=== PATIENT | male | born 1970 | race Caucasian/White ===

== ENCOUNTER → 2016-09-28 | Outpatient (CLI) | payer MEDICARE, OTHER ==
--- NOTE | 2016-09-28 15:40 | REP ---
MR CERVICAL SPINE WITHOUT CONTRAST: HISTORY: Neck pain. COMPARISON: 06/24/2015. A disc bulge is present at C3-4 level. There is mild effacement of the thecal sac without spinal cord compression. Bilateral uncinate process hypertrophy is present. This produces moderate and mild narrowing of the right and left C3 neural foramina respectfully. A disc bulge is present at the C4-5 level. There is minimal effacement of the thecal sac without spinal cord compression. Bilateral uncinate process hypertrophy is present. This produces mild and moderate narrowing of the right and left C4 neural foramina respectfully. A disc bulge with associated osteophyte formation is present at the C5-6 level. There is mild effacement of the thecal sac without spinal cord compression. Bilateral uncinate process hypertrophy is present. This produces mild and moderate narrowing of the right and left C5 neural foramina respectfully. A disc bulge is present at the C6-7 level. There is minimal effacement of the thecal sac without spinal cord compression. The C6 neural foramina are patent. A small central disc protrusion is present at the T2-3 level. There is minimal effacement of the thecal sac without spinal cord compression. The T2 neural foramina are patent on sagittal images. There is no other disc bulge or herniation. The remaining neural foramina are patent. The spinal cord is normal in signal intensity. There is no intradural extramedullary lesion. The C3-4 through C6-7 intervertebral discs are decreased in height consistent with disc degeneration. A hemangioma is present in the T1 vertebral body. Normal signal intensity is present in the cervical vertebral bodies. IMPRESSION: There is cervical spondylosis at the C3-4 through C6-7 levels without spinal cord compression. There is no significant change compared to the previous study. Signed by Estiven Arora MD 09/28/2016 03:41 P
--- NOTE | 2016-09-28 16:18 | REP ---
MRI LUMBAR SPINE WITHOUT CONTRAST: HISTORY: Back pain. COMPARISON: 10/15/2013 Decreased signal intensity on T2 weighted images is present in the L2-3 through L5-S1 intervertebral discs. The discs are decreased in height: These findings are consistent with disc degeneration. There is no disc bulge or herniation at the L1-2 level. The L1 nerves exit the neural foramina without compression. A diffuse disc bulge is present at the L2-3 level. There is minimal compression of the thecal sac. There is hypertrophy of the posterior articulating facets. The L2 nerves exit the neural foramina without compression. A diffuse disc bulge is present at the L3-4 level. There is minimal compression of the thecal sac. There is hypertrophy of the posterior articulating facets. The L3 nerves exit the neural foramina without compression. A diffuse disc bulge and small left paracentral disc extrusion are present at the L4-5 level. There is minimal compression of the thecal sac. There is hypertrophy of the posterior articulating facets. The L4 nerves exit the neural foramina without compression. A diffuse disc bulge is present at the L5-S1 level. There is minimal compression of the thecal sac. There is hypertrophy of the posterior articulating facets. The L5 nerves exit the neural foramina without compression. The conus medullaris is normal in appearance terminating at the level of the T12-L1 intervertebral disc. Increased signal intensity on T2 weighted images is present in the end plates of the L2 through 5 vertebral bodies. This represent degenerative change. IMPRESSION: 1. Diffuse disc bulges at the L2-3, L3-4 and L5-S1 levels with minimal thecal sac compression. 2. Diffuse disc bulge and small left paracentral disc extrusion at the L4-5 level with minimal thecal sac compression. There is no significant change compared to the previous study. Signed by Estiven Arora MD 09/28/2016 04:19 P
== END ==
LOC: M RAD 14:03
PROVIDERS: ATTEND Family Medicine
DX: M51.26 Other intervertebral disc displacement, lumbar region (principal); M50.020 Cervical disc disorder with myelopathy, mid-cervical region, unspecified level

== ENCOUNTER → 2017-12-13 | Outpatient (CLI) | payer OTHER | LOC: M RAD 13:17 | DX: M25.78 Osteophyte, vertebrae (principal); M50.31 Other cervical disc degeneration, high cervical region; M50.321 Other cervical disc degeneration at C4-C5 level; M47.22 Other spondylosis with radiculopathy, cervical region | CPT/HCPCS: 72141 ==

== ENCOUNTER → 2018-11-09 | Outpatient (CLI) | payer MEDICARE ==
--- NOTE | 2018-11-11 09:17 | REP ---
MR LUMBAR SPINE WITHOUT CONTRAST: HISTORY: Disc displacement. COMPARISON: 09/28/2016. Decreased signal intensity on T2-weighted images is present in the L2-3 through L5-S1 intervertebral disc. The discs are decreased in height. These findings are consistent with disc degeneration. There is no disc bulge or herniation at the L1-2 level. The L1 nerves exit the neural foramina without compression. A diffuse disc bulge is present at the L2-3 level. There is minimal compression of the thecal sac. There is hypertrophy of the posterior articulating facets. The L2 nerves exit the neural foramina without compression. A diffuse disc bulge is present at the L3-4 level. There is minimal compression of the thecal sac. There is hypertrophy of the posterior articulating facets. The L3 nerves exit the neural foramina without compression. A diffuse disc bulge and small left paracentral disc extrusion are present at the L4-5 level. There is minimal compression of the thecal sac. There is hypertrophy of the posterior articulating facets. There is compression of the right L4 nerve in the neural foramen. The left L4 nerve exits the neural foramen without compression. A diffuse disc bulge is present at the L5-S1 level. There is minimal compression of the thecal sac. There is hypertrophy of the posterior articulating facets. The L5 nerves exit the neural foramina without compression. The conus medullaris is normal in appearance terminating at the level of the T12-L1 intervertebral disc. Increased signal intensity on T2-weighted images is present in the endplates of the L2-5 vertebral bodies. This represents degenerative change. IMPRESSION: 1. Diffuse disc bulges at the L1-2, L3-4 , and L5-S1 levels with minimal thecal sac compression. 2. Diffuse disc bulge and small left paracentral disc extrusion at the L4-5 level with minimal thecal sac compression. There is compression of the right L4 nerve in the neural foramen. The right L4 nerve compression is a new finding. Electronically Signed by Estiven Arora MD 11/11/2018 09:30 A
== END ==
LOC: M RAD 13:38
PROVIDERS: ATTEND Family Medicine
DX: M47.896 Other spondylosis, lumbar region (principal); M51.36 Other intervertebral disc degeneration, lumbar region

== ENCOUNTER 2019-11-08 17:06 | Emergency (ER) | payer MEDICARE, MEDICAID ==
[~2019-11-08] VITALS: Ht 175.3 cm; Wt 96.9 kg
[2019-11-08] MEDS ORDERED: MEDR4PAK PO (17:51)
[2019-11-08] MEDS ORDERED: KETOROLAC 60 MG/2 ML VIAL (J1885) IM ONE (18:00)
[2019-11-08 18:08] VITALS: BP 112/80
== END 2019-11-08 18:12 | disposition home or self-care (01) ==
LOC: M ED 17:06
DX: M54.41 Lumbago with sciatica, right side (principal); M51.27 Other intervertebral disc displacement, lumbosacral region; M51.37 Other intervertebral disc degeneration, lumbosacral region; G89.29 Other chronic pain; M62.830 Muscle spasm of back; Z98.890 Other specified postprocedural states
CPT/HCPCS: 96372; 99283; J1885

== ENCOUNTER → 2020-02-24 | Outpatient (REF) | payer MEDICARE ==
[~2020-02-24] MED LIST: MEDR4PAK PO
[2020-02-24 12:21] LABS: BLOOD UREA NITROGEN 16 MG/DL (7-18); CALCIUM LEVEL 8.8 MG/DL (8.5-10.1); CARBON DIOXIDE LEVEL 27 MEQ/L (21-32); CHLORIDE LEVEL 107 MEQ/L (98-107); CREATININE FOR GFR 0.91 MG/DL (0.70-1.30); GLOMERULAR FILTRATION RATE > 60.0 (>60); GLUCOSE, FASTING 95 MG/DL (70-100); POTASSIUM SERUM 4.6 MEQ/L (3.5-5.1); SODIUM LEVEL 140 MEQ/L (136-145)
== END ==
LOC: M SFHCCLAY 08:36
PROVIDERS: ATTEND Family Medicine
DX: E87.6 Hypokalemia (principal)

== ENCOUNTER → 2020-11-08 | Outpatient (CLI) | payer MEDICARE, MEDICAID ==
--- NOTE | 2020-11-08 17:41 | REP ---
INDICATION: OTHER SPONDYLOSIS,CERVIAL REGION/THORACIC SPINE PAIN. COMPARISON: Comparison radiograph 12/13/2017.. TECHNIQUE: Seven views. FINDINGS: In the interval since the prior exam, the patient undergone cervical spine discectomy and fusion ventrally across the C5-6 level. There is mild degenerative disc disease at C4-5. This discogenic spurring is a new finding. No subluxation or instability is seen. Cervical vertebral body heights are preserved. Alignment is normal. Oblique images show intact neural foramina bilaterally at each cervical level and normally aligned facets. AP and open-mouth odontoid views are unremarkable. IMPRESSION: Status post C5-6 discectomy and fusion plating. Mild degenerative disc narrowing and spur formation C4-5. <Electronically signed by Jonathan Ag > 11/08/20 [id number]
--- NOTE | 2020-11-08 17:46 | REP ---
INDICATION: OTHER SPONDYLOSIS, CERVICAL REGION/THORACIC SPINE PAIN. COMPARISON: None. TECHNIQUE: For AP and lateral views thoracic spine. FINDINGS: There is no compression fracture or malalignment. There is normal thoracic kyphosis. There is mild diffuse spurring with larger lateral bridging osteophytes of lower thoracic vertebral bodies. Scattered mild disc space narrowing is noted with mild subchondral sclerosis. Incidental note is made of prior anterior cervical discectomy and fusion at C5-6 level. IMPRESSION: Degenerative changes. No fracture or dislocation. <Electronically signed by Kofi Draper > 11/08/20 [id number]
== END ==
LOC: M CLY 13:56
PROVIDERS: ATTEND Family Medicine
DX: M51.34 Other intervertebral disc degeneration, thoracic region (principal); M47.892 Other spondylosis, cervical region
CPT/HCPCS: 72050; 72072; G0463

== ENCOUNTER → 2020-12-03 | Outpatient (CLI) | payer MEDICAID, MEDICARE ==
--- NOTE | 2020-12-03 16:32 | REP ---
INDICATION: DIZZINESS. COMPARISON: None. TECHNIQUE: Bilateral carotid artery duplex ultrasound. FINDINGS: Peak flow velocities: Right left Internal carotid artery 110 cm/sec 90 cm/sec Int. Carotid diastolic 145 cm/sec 130 cm/sec External carotid artery 114 cm/sec 136 cm/sec Common carotid artery 46 cm/sec 39 cm/sec ICA-CCA ratio 0.96 0.66 There is no visible atheromatous plaque on the right or the left. The peak flow velocities are normal bilaterally. There is no stenosis on the right or the left. There is antegrade flow in the vertebral arteries bilaterally. IMPRESSION: There is no stenosis on the right or the left. <Electronically signed by Kofi Voss > 12/03/20 [id number]
== END ==
LOC: M RAD 15:30
PROVIDERS: ATTEND Family Medicine
DX: R42 Dizziness and giddiness (principal)

== ENCOUNTER → 2020-12-10 | Outpatient (REF) | payer MEDICARE ==
[2020-12-10 16:11] LABS: BASO # 0.1 10^3/uL (0.0-0.2); BASO % 0.9 % (0.0-1.0); EOS # 0.1 10^3/uL (0.0-0.5); EOS % 1.3 % (0.0-3.0); HEMATOCRIT 47.3 % (42.0-52.0); HEMOGLOBIN 16.1 g/dl (13.5-17.5); LYMPH # 2.1 10^3/uL (1.5-5.0); LYMPH % 23.8 % (24.0-44.0); MEAN CORPUSCULAR HEMOGLOBIN 31.4 pg (27.0-33.0); MEAN CORPUSCULAR VOLUME 92.4 fl (80.0-96.0); MONO # 0.6 10^3/uL (0.0-0.8); MONO % 7.2 % (2.0-8.0); NEUTROPHILS % 66.6 % (36.0-66.0); PLATELET COUNT, AUTOMATED 256 10^3/uL (150-450); RED BLOOD COUNT 5.12 10^6/uL (4.30-6.10); WHITE BLOOD COUNT 8.9 10^3/uL (4.0-10.0)
[2020-12-10 16:18] LABS: ALBUMIN 4.4 GM/DL (3.2-5.2); ALT/SGPT 38 U/L (12-78); BILIRUBIN,TOTAL 0.6 MG/DL (0.2-1.0); BLOOD UREA NITROGEN 18 MG/DL (7-18); CALCIUM LEVEL 9.3 MG/DL (8.5-10.1); CARBON DIOXIDE LEVEL 28 MEQ/L (21-32); CHLORIDE LEVEL 103 MEQ/L (98-107); CREATININE FOR GFR 1.03 MG/DL (0.70-1.30); GLOMERULAR FILTRATION RATE > 60.0 (>60); GLUCOSE, FASTING 93 MG/DL (70-100); POTASSIUM SERUM 4.3 MEQ/L (3.5-5.1); SODIUM LEVEL 136 MEQ/L (136-145); TOTAL PROTEIN 7.8 GM/DL (6.4-8.2); URIC ACID 6.2 MG/DL (3.5-7.2)
[2020-12-10 19:34] LABS: ERYTHROCYTE SEDIMENTATION RATE 3 mm/hr (0-15)
[2020-12-13 18:07] LABS: ANA (HEP2) Negative (.); CYCLIC CITRULLINATED PEPTIDE 5 units (0-19)
== END ==
LOC: M SFHCCLAY 10:59
PROVIDERS: ATTEND Family Medicine
DX: M25.541 Pain in joints of right hand (principal)
CPT/HCPCS: 80053; 84550; 85025; 85652; 86038; 86140; 86200; G0463

== ENCOUNTER → 2020-12-17 | Outpatient (CLI) | payer MEDICARE ==
--- NOTE | 2020-12-17 09:34 | REP ---
INDICATION: M25.541 PAIN IN JOINT OF RIGHT HAND COMPARISON: None. TECHNIQUE: AP, lateral, bilateral oblique views right hand. FINDINGS: Postsurgical changes involving the wrist/carpal bones noted. Evidence for old healed 5th metacarpal bone fracture. Remainder of the examination is essentially age-appropriate and without significant osteoarthritic or inflammatory arthritic changes noted. IMPRESSION: Evidence for prior wrist surgery and old healed right 5th metacarpal bone fracture. No prior exam for comparison.. <Electronically signed by Iraj Starks > 12/17/20 [id number]
== END ==
LOC: M CLY 09:08
PROVIDERS: ATTEND Family Medicine
DX: M25.541 Pain in joints of right hand (principal); Z87.81 Personal history of (healed) traumatic fracture; Z98.890 Other specified postprocedural states

== ENCOUNTER → 2021-05-02 | Outpatient (CLI) | payer MEDICARE ==
--- NOTE | 2021-05-02 18:46 | REPVR ---
PROCEDURE INFORMATION: Exam: MR Lumbar Spine Without Contrast Exam date and time: 05/02/2021 1:41 PM Age: 51 years old Clinical indication: Low back pain; Additional info: Lumbar stenosis, mid back pain TECHNIQUE: Imaging protocol: Multiplanar magnetic resonance images of the lumbar spine without intravenous contrast. COMPARISON: MRI-Spine, L.S. without con 11/09/2018 1:56 PM FINDINGS: Vertebrae: Shallow levoscoliosis. Focus of marrow space edema in the left posterolateral marrow space of L4. Spinal cord: Normal signal. No cord compression. L1-L2: Disc space narrowing and bulging annulus at L1-L2. No spinal stenosis. L2-L3: There is a bulging annulus with a mild central spinal stenosis at L2-L3 secondary to diffuse annular bulging, thickened ligamentum flavum without significant facet joint arthropathy. L3-L4: There is a bulging annulus with a mild central spinal stenosis at L3-L4 secondary to diffuse annular bulging, thickened ligamentum flavum without facet joint arthropathy. L4-L5: There is a bulging annulus with a mild central spinal stenosis at L4-L5 secondary to diffuse annular bulging, thickened ligamentum flavum with mild facet joint arthropathy. Moderate foraminal stenosis on the right. L5-S1: There is a bulging annulus at L5-S1 and a broad left lateral and foraminal disc protrusion touching the exiting ipsilateral L5 nerve root far laterally. No spinal stenosis. No significant facet joint arthropathy. Soft tissues: Unremarkable. IMPRESSION: 1. Degenerative changes as described above. 2. Focus of marrow space edema in the left posterolateral aspect of L4. 3. Multilevel spinal stenoses, mild at L2-L3, L3-L4 and L4-L5. 4. Moderate foraminal stenosis on the right at L4-L5. 5. Bulging annulus and broad left lateral foraminal disc protrusion at L5-S1 touching the ipsilateral L5 nerve root far laterally. Electronically signed by: Kirill Gastelum On 05/02/2021 18:46:12 PM
--- NOTE | 2021-05-02 18:50 | REPVR ---
PROCEDURE INFORMATION: Exam: MR Thoracic Spine Without Contrast Exam date and time: 05/02/2021 1:17 PM Age: 51 years old Clinical indication: Pain in thoracic spine; Additional info: Lumbar stenosis, mid back pain TECHNIQUE: Imaging protocol: Multiplanar magnetic resonance images of the thoracic spine without contrast. COMPARISON: CR SPINE THORACIC 3 VIEW 11/08/2020 2:16 PM FINDINGS: Vertebrae: Unremarkable. Spinal cord: No cord abnormality. Discs/Spinal canal/Neural foramina: Right paracentral disc protrusion at T8-9 effaces the ventral subarachnoid space without cord impingement. Diffusely bulging annulus at T11-12 effaces the ventral subarachnoid space without cord impingement. Mild posterior annular bulges at T10-11,and T12-L1. Soft tissues: Unremarkable. IMPRESSION: 1. Degenerative changes as described above with a right paracentral disc protrusion at T8-9 and mildly bulging annuli at T10-11, T11-12, and T12-L1. 2. No cord impingement. Electronically signed by: Kirill Gastelum On 05/02/2021 18:50:43 PM
== END ==
LOC: M PLAIMG 12:33
PROVIDERS: ATTEND Neurological Surgery
DX: M48.061 Spinal stenosis, lumbar region without neurogenic claudication (principal); M99.73 Connective tissue and disc stenosis of intervertebral foramina of lumbar region; M54.42 Lumbago with sciatica, left side; M54.41 Lumbago with sciatica, right side; G89.29 Other chronic pain; Z98.890 Other specified postprocedural states

== ENCOUNTER → 2022-03-15 | Outpatient (REF) | payer MEDICARE ==
[2022-03-15 18:47] LABS: BASO # 0.1 10^3/uL (0.0-0.2); BASO % 0.8 % (0.0-1.0); EOS # 0.1 10^3/uL (0.0-0.5); HEMOGLOBIN 14.4 g/dl (13.5-17.5); LYMPH % 22.3 % (24.0-44.0); MEAN CORPUSCULAR HGB CONC 34.3 g/dl (32.0-36.5); MEAN CORPUSCULAR VOLUME 93.3 fl (80.0-96.0); MONO # 0.6 10^3/uL (0.0-0.8); MONO % 7.1 % (2.0-8.0); NEUTROPHILS % 68.5 % (36.0-66.0); PLATELET COUNT, AUTOMATED 273 10^3/uL (150-450); WHITE BLOOD COUNT 8.8 10^3/uL (4.0-10.0)
[2022-03-15 19:19] LABS: ALBUMIN 3.8 GM/DL (3.2-5.2); ALT/SGPT 31 U/L (12-78); BILIRUBIN,TOTAL 0.8 MG/DL (0.2-1.0); BLOOD UREA NITROGEN 13 MG/DL (7-18); C REACTIVE PROTEIN QUANTITATIV 0.32 MG/DL (0.00-0.30); CALCIUM LEVEL 9.1 MG/DL (8.5-10.1); CARBON DIOXIDE LEVEL 27 MEQ/L (21-32); CHLORIDE LEVEL 107 MEQ/L (98-107); CREATININE FOR GFR 1.06 MG/DL (0.70-1.30); GLOMERULAR FILTRATION RATE > 60.0 (>60); GLUCOSE, FASTING 75 MG/DL (70-100); POTASSIUM SERUM 3.7 MEQ/L (3.5-5.1); RHEUMATOID FACTOR QUANT < 10.0 IU/ML (<15.0); SODIUM LEVEL 141 MEQ/L (136-145); TOTAL PROTEIN 7.2 GM/DL (6.4-8.2)
[2022-03-15 19:27] LABS: ERYTHROCYTE SEDIMENTATION RATE 7 mm/hr (0-15)
[2022-03-21 15:10] LABS: ANA (HEP2) Negative (.); CYCLIC CITRULLINATED PEPTIDE 7 units (0-19)
== END ==
LOC: M SFHCCLAY 15:25
PROVIDERS: ATTEND Physician Assistant
DX: M25.542 Pain in joints of left hand (principal)

== ENCOUNTER → 2023-04-24 | Outpatient (REF) | payer MEDICARE ==
[2023-04-24 12:07] LABS: HEMATOCRIT 46.6 % (42.0-52.0); HEMOGLOBIN 15.6 g/dl (13.5-17.5); MEAN CORPUSCULAR HEMOGLOBIN 32.2 pg (27.0-33.0); MEAN CORPUSCULAR HGB CONC 33.5 g/dl (32.0-36.5); MEAN CORPUSCULAR VOLUME 96.1 fl (80.0-96.0); PLATELET COUNT, AUTOMATED 227 10^3/uL (150-450); RED BLOOD COUNT 4.85 10^6/uL (4.30-6.10); WHITE BLOOD COUNT 6.2 10^3/uL (4.0-10.0)
[2023-04-24 12:45] LABS: C REACTIVE PROTEIN QUANTITATIV < 0.40 MG/DL (<1.0)
[2023-04-24 12:47] LABS: RHEUMATOID FACTOR QUANT < 3.5 IU/ML (<14)
[2023-04-24 12:53] LABS: ALBUMIN 3.9 G/DL (3.2-5.2); ALKALINE PHOSPHATASE 80 U/L (46-116); ALT/SGPT 44 U/L (7.0-40); AST/SGOT 31 U/L (<34); BILIRUBIN,TOTAL 1.2 MG/DL (0.3-1.2); BLOOD UREA NITROGEN 11 MG/DL (9-23); CALCIUM LEVEL 8.8 MG/DL (8.5-10.1); CARBON DIOXIDE LEVEL 28 MMOL/L (20-31); CHLORIDE LEVEL 101 MMOL/L (98-107); CHOLESTEROL LEVEL 190 MG/DL (<200); CHOLESTEROL RISK RATIO 2.57 (<5); CREATININE FOR GFR 0.84 MG/DL (0.70-1.30); GLOMERULAR FILTRATION RATE > 60.0 (>56); GLUCOSE, FASTING 90 MG/DL (60-100); HDL CHOLESTEROL 73.9 MG/DL (>40); LDL CHOLESTEROL 92.1 MG/DL (<100); NON-HDL-C 116.1 MG/DL; POTASSIUM SERUM 4.8 MMOL/L (3.5-5.1); SODIUM LEVEL 136 MMOL/L (136-145); TOTAL PROTEIN 7.3 G/DL (5.7-8.2); TRIGLYCERIDES LEVEL 120 MG/DL (<150)
[2023-04-25 23:08] LABS: ANA (HEP2) Negative (.); CYCLIC CITRULLINATED PEPTIDE < 1 units (0-19)
== END ==
LOC: M SFHCCLAY 07:29
PROVIDERS: ATTEND Family Medicine
DX: M25.541 Pain in joints of right hand (principal); Z12.5 Encounter for screening for malignant neoplasm of prostate; Z13.220 Encounter for screening for lipoid disorders
CPT/HCPCS: 80053; 80061; 85027; 86038; 86140; 86200; 86431; G0103

== ENCOUNTER → 2023-05-02 | Outpatient (CLI) | payer MEDICARE | LOC: M CLY 09:10 | PROVIDERS: ATTEND Family Medicine | DX: M25.541 Pain in joints of right hand (principal); M25.561 Pain in right knee ==

== ENCOUNTER → 2025-06-02 | Outpatient (CLI) | payer MEDICARE, MEDICAID | LOC: M RAD 09:03 | PROVIDERS: ATTEND Family Medicine | DX: M25.561 Pain in right knee (principal); M25.361 Other instability, right knee ==